=== PATIENT | male | born 1950 | race Caucasian/White ===

== ENCOUNTER 2019-06-10 13:19 | Emergency (ER) | payer OTHER, MEDICARE ==
[2019-06-10] MEDS ORDERED: Sodium Chloride 0.9% 10 ML Syringe FLUSH PRN ×2 (13:58→14:27)
[2019-06-10] MEDS ORDERED: Iopamidol 612 MG/ML 100 ML Bottle IVPUSH ONE (14:27)
[2019-06-10] MEDS ORDERED: Sodium Chloride 0.9% 100 ML IV SCH (14:30)
--- NOTE | 2019-06-10 15:14 | CR ---
Pelvis and left hip: AP view of the pelvis was obtained as well as AP and frog-leg lateral views of the left hip. Comparison: No previous study. Joint spaces are preserved. Calcification is noted off the superior left acetabulum believed to be incidental. Osteopenia is seen. No discrete fracture or other bony abnormality is noted. Impression: 1. Findings as noted above. Nothing acute is appreciated on AP pelvis or on two-view left hip exam. Diagnostic code #2
--- NOTE | 2019-06-10 15:50 | CT ---
Head CT Technique: Multiple axial sections through the brain were obtained. Intravenous contrast was not utilized. Comparison: No prior intracranial imaging. Findings: Ventricles along with basal cisterns and sulci over the convexities are mildly prominent. No abnormal parenchymal densities are seen. No evidence of intracranial hemorrhage. No midline shift or mass effect is seen. Minimal atherosclerotic calcification is seen within the carotid siphon. Visualized paranasal sinuses show nothing acute. Right mastoid sinus is clear. No acute calvarial abnormality is seen. Left mastoidectomy is again noted. Impression: 1. Mild senescent change. No acute intracranial abnormality is identified. Diagnostic code #2
--- NOTE | 2019-06-10 16:02 | CT ---
CT cervical spine Technique: Multiple axial sections through the cervical spine were obtained from above C1 inferiorly to the mid T2 level. Reconstructed sagittal and coronal images were reviewed. Comparison: No prior CT cervical spine. Findings: Severe disc space narrowing is noted at C4-C5. Anterior osteophytes are seen which are most prominent at C4-C5 with smaller osteophytes at C5-C6. Mild degenerative change is noted between the dens anterior arch of C1. Prior surgery to the left mastoid sinus is noted. No cervical spine fracture is identified. No abnormal subluxation is seen. Severe neural foraminal stenosis is noted at C4-C5 on the right side. Mild left-sided neural foraminal stenosis is noted at C5-C6 on the left side. Neural foramina are otherwise felt to be patent. Slight degenerative spurring is noted within the uncovertebral joints at C4-C5 and C5-C6. Mild scattered degenerative apophyseal change is seen throughout cervical spine. Impression: 1. Degenerative change as noted above. 2. Prior left mastoidectomy. 3. Nothing acute is appreciated on CT study of the cervical spine. Diagnostic code #2
--- NOTE | 2019-06-10 16:02 | CT ---
CT chest Technique: Multiple axial sections were obtained from above the lung apices inferiorly through the lung bases. Intravenous contrast was utilized. Comparison: No prior chest imaging is available. Findings: Emphysematous changes are present. Scattered subpleural nodules are seen as well as small parenchymal nodule being seen within both lungs. No pulmonary contusion is seen. No pleural effusions are noted. No pneumothorax is seen. Mediastinum and hilar regions are unremarkable. No pericardial thickening is seen. Bone window settings were reviewed which show no acute rib abnormality. Thoracic spine shows no discrete fracture or abnormal subluxation. Reconstructed sagittal images of the sternum appear to be intact. Impression: 1. Emphysematous changes. 2. Small scattered nodules within the chest. Follow-up chest CT recommended in 6 months to hopefully show stability of these nodules. This follow-up would occur in Dec, 2019 3. Nothing acute is appreciated on CT study of the chest. Diagnostic code #9 CT abdomen and pelvis Technique: Multiple axial sections were obtained from above the dome of the diaphragm inferiorly through the pubic symphysis. Intravenous contrast was utilized. No oral contrast has been given. Comparison: No prior abdominal imaging is available. Findings: Liver shows no focal parenchymal abnormality. Spleen appears within normal limits. Adrenal glands show no nodule. Kidneys show symmetric contrast enhancement without hydronephrosis or mass. Aorta shows atherosclerotic change without aneurysm. Pancreas is within normal limits. No retroperitoneal adenopathy or mesenteric abnormalities are seen. Diverticuli are seen within the sigmoid colon without diverticulitis. No free fluid or inflammatory change is seen within the abdomen or pelvis. Appendix is not visualized with certainty. Bone window settings were reviewed which show scattered degenerative change within the spine. Mild compression deformity is seen within L2 without definite acute fracture line and this presumably is old. Vacuum disc phenomenon is seen within the L1-L2 disc and the L5-S1 disc. No acute lumbar spine fracture is suspected. No fracture is seen within the pelvis or within the hips. Impression: 1. Findings which are believed to be incidental as noted above. Nothing acute is appreciated on CT study of the abdomen and pelvis. Diagnostic code #2
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
== END 2019-06-10 17:13 | disposition home or self-care (01) ==
LOC: SUPCPDRO 13:19 → JD.ED 13:19
DX: S13.9XXA Sprain of joints and ligaments of unspecified parts of neck, initial encounter (principal); S70.02XA Contusion of left hip, initial encounter; S20.412A Abrasion of left back wall of thorax, initial encounter; E78.00 Pure hypercholesterolemia, unspecified; E11.9 Type 2 diabetes mellitus without complications; F17.210 Nicotine dependence, cigarettes, uncomplicated; Z79.82 Long term (current) use of aspirin; Z79.899 Other long term (current) drug therapy; Z79.84 Long term (current) use of oral hypoglycemic drugs; V49.40XA Driver injured in collision with unspecified motor vehicles in traffic accident, initial encounter; Y92.410 Unspecified street and highway as the place of occurrence of the external cause
CPT/HCPCS: 36415; 70450; 71260; 72125; 73502; 74177; 80053; 85025; 99285; J7030; Q9967

== ENCOUNTER 2024-04-30 13:42 | Emergency (ER) | payer MEDICARE, BC ==
[2024-04-30 14:48] LABS: BASOPHILS ABSOLUTE AUTO 0.1 K/mm3 (0.0-0.2); BASOPHILS PERCENT AUTO 0.8 % (0.0-1.0); EOSINOPHILS ABSOLUTE AUTO 0.1 K/mm3 (0.0-0.4); EOSINOPHILS PERCENT AUTO 1.9 % (0.0-6.0); HEMATOCRIT 46.1 % (42.0-52.0); HEMOGLOBIN 15.2 gm/dl (14.0-18.0); IMMATURE GRAN ABSOLUTE AUTO 0.02 K/mm3 (0.00-0.05); IMMATURE GRAN PERCENT AUTO 0.3 % (0.0-0.4); LYMPHOCYTES ABSOLUTE AUTO 1.5 K/mm3 (1.0-4.8); LYMPHOCYTES PERCENT AUTO 23.8 % (24.0-44.0); MEAN CORPUSCULAR HEMOGLOBIN 28.7 pg (28.0-32.0); MEAN PLATELET VOLUME 9.4 fl (9.4-12.4); MONOCYTES ABSOLUTE AUTO 0.5 K/mm3 (0.0-0.8); MONOCYTES PERCENT AUTO 7.2 % (0.0-8.0); NEUTROPHILS ABSOLUTE AUTO 4.2 K/mm3 (1.8-7.7); PLATELET COUNT,PLT 304 K/mm3 (150-400)
[2024-04-30] MEDS: Sodium Chloride 0.9% 1,000 ML IV ONE (15:03)
[2024-04-30] MEDS: ceFAZolin 2 GM in Sodium Chloride 0.9% 50 ML IV ONE (15:03)
[2024-04-30 15:06] LABS: INR 1.03; PROTHROMBIN TIME 10.9 SECONDS (9.7-12.0)
[2024-04-30 15:17] LABS: A/G RATIO 1.1 (1-2); ALBUMIN 4.3 g/dl (3.4-5.0); ANION GAP 14.4 (5-15); BILIRUBIN TOTAL 0.6 mg/dL (0.2-1.0); BUN/CREATININE RATIO 18.7 (14-18); CALCIUM 10.2 mg/dL (8.5-10.1); CREATININE 1.5 mg/dL (0.7-1.3); EST CRCL DRUG DOSING (CG) 38.4 mL/min; POTASSIUM,K 5.4 mEq/L (3.5-5.1); PROTEIN TOTAL,TP 8.1 g/dl (6.4-8.2)
[2024-04-30] MEDS: Lidocaine 1% 10 ML MDV ONE (15:49)
[2024-04-30] MEDS: Lidocaine 1% 10 ML MDV INJECT ONE ×3 (15:49)
[2024-04-30] MEDS: HYDROmorphone 0.5 MG/0.5 ML Syringe IVPUSH ONE (15:52)
[2024-04-30] MEDS: Sodium Chloride 0.9% 10 ML Syringe FLUSH PRN (15:53)
[2024-04-30] MEDS: Acetaminophen/HYDROcodone 325-10 MG Tab PO ONE (16:45)
== END 2024-04-30 17:11 | disposition home or self-care (01) ==
LOC: JD.ED 13:42
DX: S68.113A Complete traumatic metacarpophalangeal amputation of left middle finger, initial encounter (principal); E78.00 Pure hypercholesterolemia, unspecified; E11.9 Type 2 diabetes mellitus without complications; Z90.49 Acquired absence of other specified parts of digestive tract; Z79.899 Other long term (current) drug therapy; Z79.82 Long term (current) use of aspirin; W31.2XXA Contact with powered woodworking and forming machines, initial encounter
CPT/HCPCS: 12001; 36415; 73130; 80053; 85025; 85610; 85730; 86850; 86900; 86901; 96365; 96375; 99283; J0690; J1170; J3490; J7030; 99284